=== PATIENT | female | born 1955 | race Caucasian/White ===

== ENCOUNTER 2016-12-10 09:23 | Outpatient (CLI) | payer OTHER ==
--- NOTE | 2016-12-11 23:32 | DIAGNOSTIC IMAGING REPORT ---
REFERRING PHYSICIAN/PROVIDER: Dr. Fermin CONSULTING AND DRYING SUPERVISOR COOKING CASING: Archie Crockett MD PROCEDURE: 2D echo, M-mode and complete color and flow Doppler interrogation TECHNICAL QUALITY: Technically difficult INDICATION: CHF INTERPRETATIONS: CHAMBERS: LEFT ATRIUM: Normal left atrial size LEFT VENTRICLE: Normal left ventricular size with posterior wall hypertrophy measuring 1.5 cm. EF 75%. No wall motion abnormalities. Normal diastolic function. RIGHT ATRIUM: Normal right atrial size. RIGHT VENTRICLE: Normal right ventricular size. RV is not seen well, but appears to function normally. VALVES: All valves nonrheumatic unless otherwise indicated. AORTIC VALVE: Trileaflet aortic valve with mild sclerosis. No aortic stenosis. No aortic regurgitation. MITRAL VALVE: Normal appearing mitral valve leaflets. No mitral stenosis, mild mitral regurgitation. TRICUSPID VALVE: Mild tricuspid regurgitation. RVSP 25 + 8 mmHg = 31 mmHg PULMONIC VALVE: Trace pulmonic regurgitation. MISCELLANEOUS: No pericardial effusion. HEMODYNAMICS: CVP is 8 mmHg. IMPRESSION: 1. Normal left ventricular size with mild posterior wall hypertrophy, and normal systolic function, EF 75%. No wall motion abnormalities. 2. Normal diastolic function. 3. No hemodynamically significant valvular abnormalities. 4. Normal right ventricular size. RV is not seen well but appears to have normal function. 5. Estimated pulmonary artery systolic pressure is 31 mmHg.
== END 2016-12-10 23:00 ==
LOC: US SRH 09:23
DX: I50.9 Heart failure, unspecified (principal)

== ENCOUNTER 2017-02-12 10:14 | Outpatient (CLI) | payer OTHER ==
--- NOTE | 2017-02-12 12:13 | DIAGNOSTIC IMAGING REPORT ---
PROCEDURE: US ART LOWER EXT WITH BRAULIO-B/L INDICATION: CLAUDICATION TECHNIQUE: Preexercise ABIs were performed. The patient was exercised ( 20 toe-ups) and postexercise ABIs were repeated followed by color Doppler duplex imaging of the lower extremities. COMPARISON: None. FINDINGS: RIGHT LOWER EXTREMITY: ABIs: Resting ABIs: Posterior tibial 1.02 and dorsalis pedis 1.12. Post exercise ABIs: posterior tibial 1.16 and dorsalis pedis 1.23. VESSELS: Minimal plaque formation. Triphasic wave form from the external iliac artery to the popliteal artery and biphasic wave form distally to the ankle. RIGHT LOWER EXTREMITY PEAK SYSTOLIC VELOCITIES: External iliac: 79 cm/second. Common femoral artery: 31 cm/second. Profunda femoral artery: 47 cm/second. Proximal superficial femoral artery: 43 cm/second. Mid superficial femoral artery: 73 cm/second. Distal superficial femoral artery: 61 cm/second. Popliteal artery: 34 cm/second. Proximal posterior tibial artery: 32 cm/second. Proximal anterior tibial artery: 42 cm/second. Distal posterior tibial artery: 34 cm/second. Dorsalis pedis artery: 45 cm/second. LEFT LOWER EXTREMITY: ABIs: Resting ABIs: Posterior tibial 1.05 and dorsalis pedis 1.13. Post excise ABIs: Posterior tibial 1.2, dorsalis pedis 1.32. VESSELS: Minimal plaque formation. Normal triphasic wave form throughout the left lower extremity except for biphasic wave form of the posterior tibial artery. LEFT LOWER EXTREMITY PEAK SYSTOLIC VELOCITIES: External iliac: 73 cm/second. Common femoral artery: 49 cm/second. Profunda femoral artery: 37 cm/second. Proximal superficial femoral artery: 55 cm/second. Mid superficial femoral artery: 75 cm/second. Distal superficial femoral artery: 37 cm/second. Popliteal artery: 39 cm/second. Proximal posterior tibial artery: 41 cm/second. Proximal anterior tibial artery: 40 cm/second. Distal posterior tibial artery: 36 cm/second. Dorsalis pedis artery: 42 cm/second. IMPRESSION: 1. Right lower extremity: No evidence of resting or postexercise arterial insufficiency. Minimal plaque formation and no evidence of high-grade stenosis. 2. Left lower extremity: No evidence of resting or postexercise arterial insufficiency. Minimal plaque formation and no evidence of high-grade stenosis.
--- NOTE | 2017-02-19 12:24 | DIAGNOSTIC IMAGING REPORT ---
REFERRING PHYSICIAN/PROVIDER: Philippe Fermin MD CONSULTING CORRECTIONAL CASE MANAGER: Fransico Palafox MD PROCEDURE PERFORMED: NM CARDIAC STRESS TEST INDICATION: CP Lexiscan PORTION: Please see Dr. Reza's dictation Single day SESTAMIBI INTERPRETATION: The patient under went rest imaging with 11 mCi of technetium 99m labeled sestamibi injected at rest. The patient subsequently underwent stress imaging with Lexiscan. This stress dose was 32 mCi of technetium 99m labeled sestamibi. Rest stress images were then compared. The patient underwent this SPECT imaging. There was normal left ventricular size with left ventricular end-diastolic dimension of 51 mL and end-systolic dimension of 19 mL with an ejection fraction of 63%. Sum stress score was two. Sum rest score was zero. Sum difference score was two. IMPRESSION: 1. Normal cardiac perfusion 2. Normal left ventricular size 3. Normal left ventricular function 4. Low risk study
--- NOTE | 2017-02-19 12:24 | DIAGNOSTIC IMAGING REPORT ---
REFERRING PHYSICIAN/PROVIDER: Philippe Fermin MD CONSULTING BAG SHOP WORKER: Fransico Palafox MD PROCEDURE PERFORMED: NM CARDIAC STRESS TEST INDICATION: CP Lexiscan PORTION: Please see Dr. Reza's dictation Single day SESTAMIBI INTERPRETATION: The patient under went rest imaging with 11 mCi of technetium 99m labeled sestamibi injected at rest. The patient subsequently underwent stress imaging with Lexiscan. This stress dose was 32 mCi of technetium 99m labeled sestamibi. Rest stress images were then compared. The patient underwent this SPECT imaging. There was normal left ventricular size with left ventricular end-diastolic dimension of 51 mL and end-systolic dimension of 19 mL with an ejection fraction of 63%. Sum stress score was two. Sum rest score was zero. Sum difference score was two. IMPRESSION: 1. Normal cardiac perfusion 2. Normal left ventricular size 3. Normal left ventricular function 4. Low risk study
== END 2017-02-12 23:00 | disposition home or self-care (01) ==
LOC: US SRH 10:14
PROC: 4A02XM4 Measurement of Cardiac Total Activity, External Approach (ICD-10-PCS; principal; 2017-02-12)
DX: R07.9 Chest pain, unspecified (principal); I70.213 Atherosclerosis of native arteries of extremities with intermittent claudication, bilateral legs